=== PATIENT | male | born 1965 | race African-American/Black ===

== ENCOUNTER 2019-09-01 17:13 | Inpatient (IN) | payer MEDICAID ==
[~2019-09-01] VITALS: Ht 188 cm; Wt 106.2 kg
[2019-09-01] MEDS ORDERED: METHYLPREDNISOLONE SOD SUCC 125 MG/2 ML VIAL IV STA (18:33)
[2019-09-01] MEDS ORDERED: FAMOTIDINE 20MG/2ML VIAL IV ONE (18:45)
[2019-09-01] MEDS ORDERED: DIPHENHYDRAMINE 50MG/ML VIAL IV ONE (18:45)
[2019-09-01 18:46] LABS: BASOPHILS % 0.7 % (0.0-2.0); EOSINOPHILS % 4.1 % (0.0-5.0); HEMATOCRIT. 46.5 % (42.0-52.0); HEMOGLOBIN. 15.7 g/dL (14.0-18.0); LYMPHOCYTES % 22.4 % (20.0-50.0); MEAN CORPUSCULAR HEMOGLOBIN 31.5 pg (28.0-32.0); MEAN CORPUSCULAR VOLUME 93.2 fL (80.0-94.0); MEAN PLATELET VOLUME 8.9 fl (7.4-10.4); MONOCYTES % 7.2 % (2.0-8.0); NEUTROPHILS % 65.6 % (40.0-76.0); PLATELET 262 x1000/uL (130-400); RED BLOOD CELL COUNT 4.99 mill/uL (4.7-6.1); RED CELL DISTRIBUTION WIDTH 13.7 % (11.6-14.6)
[2019-09-01 18:52] LABS: CHLORIDE 106 mEq/L (98-107)
[2019-09-01] MEDS ORDERED: TRANEXAMIC ACID 1,000 MG/10 ML IV ONE (19:30)
[2019-09-01 19:41] LABS: PARTIAL THROMBOPLASTIN TIME 26.8 sec (23.4-31.0); PROTHROMBIN TIME 10.1 sec (9.6-11.0)
[2019-09-02] VITALS (11 sets, daily range): BP systolic 143–183; BP diastolic 62–111
[2019-09-02] MEDS ORDERED: METF-414 PO (05:27)
[2019-09-02] MEDS ORDERED: AMLO5TAB88 PO (05:27)
[2019-09-02] MEDS ORDERED: ALBU18HF2 IH (05:27)
[2019-09-02] MEDS ORDERED: ATOR40TA70 PO (05:27)
[2019-09-02] MEDS ORDERED: LISI-186 PO (05:27)
[2019-09-02] MEDS ORDERED: ASPI-1497 PO (05:27)
[2019-09-02] MEDS ORDERED: CLONIDINE 0.1MG TABLET PO PRN (09:00)
[2019-09-02] MEDS ORDERED: DIPHENHYDRAMINE 50MG/ML VIAL IV PRN (09:00)
[2019-09-02] MEDS ORDERED: ENOXAPARIN 40MG/0.4ML SYR SUBCUT SCH (09:00)
[2019-09-02] MEDS ORDERED: DEXTROSE 50% WATER 50ML SYRINGE IV PRN (09:15)
[2019-09-02] MEDS: METHYLPREDNISOLONE SOD SUCC 125 MG/2 ML VIAL IV SCH ×3 (09:30→21:01)
[2019-09-02] MEDS: INSULIN LISPRO 100 UNITS/ML SUBCUT SCH ×4 (09:30→21:05)
[2019-09-02] MEDS: HYDROCODONE/ACETAMINOPHEN 5/325MG TABLET PO PRN ×4 (09:31→18:00)
[2019-09-02] MEDS: AMLODIPINE 10MG TABLET PO SCH (09:52)
[2019-09-02] MEDS: BLOOD SUGAR DIAGNOSTIC STRIP TEST SCH ×4 (10:03→20:45)
[2019-09-02] MEDS: HYDRALAZINE HCL 25MG TABLET PO SCH ×2 (14:30→21:01)
[2019-09-02] MEDS: PANTOPRAZOLE 40MG DR TABLET PO SCH (15:03)
[2019-09-03] VITALS (8 sets, daily range): BP systolic 130–156; BP diastolic 35–98
[2019-09-03] MEDS: METHYLPREDNISOLONE SOD SUCC 125 MG/2 ML VIAL IV SCH ×2 (03:11→09:25)
[2019-09-03] MEDS: PANTOPRAZOLE 40MG DR TABLET PO SCH (06:17)
[2019-09-03] MEDS: HYDRALAZINE HCL 25MG TABLET PO SCH (06:23)
[2019-09-03] MEDS: BLOOD SUGAR DIAGNOSTIC STRIP TEST SCH (07:30)
[2019-09-03] MEDS: INSULIN LISPRO 100 UNITS/ML SUBCUT SCH (08:33)
[2019-09-03] MEDS ORDERED: ENOXAPARIN 30MG/0.3ML SYR SUBCUT SCH (09:00)
[2019-09-03 09:02] LABS: HEMATOCRIT. 46.3 % (42.0-52.0); HEMOGLOBIN. 15.1 g/dL (14.0-18.0); MEAN CORPUSCULAR HEMOGLOBIN 30.9 pg (28.0-32.0); MEAN CORPUSCULAR VOLUME 94.5 fL (80.0-94.0); MEAN PLATELET VOLUME 9.3 fl (7.4-10.4); PLATELET 278 x1000/uL (130-400); RED CELL DISTRIBUTION WIDTH 13.6 % (11.6-14.6)
[2019-09-03 09:04] LABS: CHLORIDE 102 mEq/L (98-107)
[2019-09-03] MEDS: AMLODIPINE 10MG TABLET PO SCH (09:24)
[2019-09-03] MEDS ORDERED: TRAM50TA94 MT (10:15)
[2019-09-03] MEDS ORDERED: AMLO10TA4 MT (10:19)
[2019-09-03] MEDS ORDERED: HYDR-4134 MT (10:19)
[2019-09-03 13:04] LABS: PLATELET ESTIMATE NORMAL
[2019-09-04] MEDS ORDERED: FAMOTIDINE 40MG TABLET PO SCH (09:00)
== END 2019-09-03 11:09 | disposition home or self-care (01) | DRG 811 ==
LOC: ER 17:13 → 5EST 21:29 → EDBD 21:29 → EDBEDREQ 21:32 → ENRESERV 09-02 03:26
PROVIDERS: ADMIT Hospitalist; ATTEND Hospitalist
DX: T78.3XXA Angioneurotic edema, initial encounter (principal); E11.9 Type 2 diabetes mellitus without complications; F17.210 Nicotine dependence, cigarettes, uncomplicated; I10 Essential (primary) hypertension; J45.909 Unspecified asthma, uncomplicated; T46.4X5A Adverse effect of angiotensin-converting-enzyme inhibitors, initial encounter; Y92.89 Other specified places as the place of occurrence of the external cause; Z88.8 Allergy status to other drugs, medicaments and biological substances; Z79.899 Other long term (current) drug therapy; Z79.82 Long term (current) use of aspirin; Z79.84 Long term (current) use of oral hypoglycemic drugs
CPT/HCPCS: 36415; 70360; 80053; 82962; 83880; 84484; 85025; 93005; 96374; 96375; 99291; J1200; J1650; J1815; J2930; J3490